=== PATIENT | female | born 1940 | race Caucasian/White ===

== ENCOUNTER 2021-07-25 18:30 | Emergency (ER) | payer MEDICARE, OTHER ==
[2021-07-25] MEDS ORDERED: ACETAMINOPHEN 325 MG TABLET (FP) PO ONE (19:02)
[2021-07-25 19:10] VITALS: TEMP 98.4; BMI 28.3
[2021-07-25] MEDS ORDERED: ACETAMINOPHEN 325 MG TABLET (FP) ONE (19:21)
[2021-07-25 20:48] VITALS: BP 136/54; PULSE 61
== END 2021-07-25 21:05 | disposition home or self-care (01) ==
LOC: FER 18:30
DX: S09.90XA Unspecified injury of head, initial encounter (principal); W05.0XXA Fall from non-moving wheelchair, initial encounter; Y93.F2 Activity, caregiving, lifting
CPT/HCPCS: 70450-TC; 71045-TC-FY; 72125-TC; 72170-TC-FY; 99285-25

== ENCOUNTER 2022-07-16 13:13 | Inpatient (IN) | payer OTHER ==
[2022-07-16 13:35] VITALS: BMI 34.0
[2022-07-16] MEDS ORDERED: SODIUM CHLORIDE 0.9% 500 ML INFUS.BAG IV ONE (13:39)
[2022-07-16 14:21] LABS: BASO % 0.3 % (0-2.0); EOS % 2.3 % (0-4.5); HEMOGLOBIN 12.6 GM/dL (10.7-15.3); LYMPH % 15.7 % (8-40); MCH 30.6 pg (25.7-33.7); MCHC 32.3 g/dl (32.0-36.0); MEAN CELL VOLUME 94.9 fl (80-96); MEAN PLT VOLUME 8.1 fl (7.5-11.1); MONO % 7.1 % (3.8-10.2); NEUT % 74.6 % (42.8-82.8); PLATELET COUNT 673 10^3/uL (134-434); RBC 4.11 M/mm3 (3.60-5.2); RDW 14.8 % (11.6-15.6); WHITE BLOOD COUNT 13.4 K/mm3 (4.0-10.0)
[2022-07-16 14:30] LABS: INR 1.07 (0.83-1.09); PROTHROMBIN TIME (PATIENT) 12.3 SEC (9.7-13.0); VENOUS BASE EXCESS 1.8 mmol/L (-2-2); VENOUS PCO2 53.8 mmHg (38-52); VENOUS PH 7.343 (7.310-7.410)
[2022-07-16 14:31] LABS: ACTIVATED PTT 28.7 SECONDS (25.2-36.5)
[2022-07-16 14:44] LABS: MAGNESIUM 2.5 mg/dL (1.8-2.4)
[2022-07-16 14:46] LABS: ALBUMIN 3.4 g/dl (3.4-5.0); BLOOD UREA NITROGEN 19.4 mg/dL (7-18)
[2022-07-16 14:48] LABS: CREATININE 0.7 mg/dL (0.55-1.3)
[2022-07-16 14:49] LABS: PHOSPHOROUS 4.1 mg/dL (2.5-4.9)
[2022-07-16 14:50] LABS: TOT PROT 7.8 g/dl (6.4-8.2)
[2022-07-16 14:51] LABS: BILIRUBIN,TOTAL 0.3 mg/dL (0.2-1)
[2022-07-16 14:55] LABS: LACTIC ACID 2.4 mmol/L (0.4-2.0)
[2022-07-16 15:01] LABS: EPI CELLS >36 /uL (0-25.1); HYALINE CASTS 17 /uL (0-3.1); PH,URINE 6.5 (5.0-8.0); URINE APPEARANCE TURBID; URINE BACTERIA >9,000 /uL (0-1359); URINE BILIRUBIN NEGATIVE (NEGATIVE); URINE COLOR DK YELLOW; URINE GLUCOSE (UA) NEGATIVE (NEGATIVE); URINE KETONE TRACE (NEGATIVE); URINE LEUK ESTERASE 3+ (NEGATIVE); URINE NITRITE POSITIVE (NEGATIVE); URINE PROTEIN 3+ (NEGATIVE); URINE RBC 2333 /uL (0-23.9); URINE WBC 11384 /uL (0-25.8)
[2022-07-16] MEDS ORDERED: CEFTRIAXONE 1,000 MG in DEXTROSE 5%-WATER - 50 ML IVPB ONE (15:41)
[2022-07-16] MEDS ORDERED: CEFTRIAXONE 1 GM/50 ML BAG ONE (16:15)
[2022-07-16] MEDS ORDERED: SODIUM CHLORIDE 1,000 ML IV STA (16:18)
[2022-07-16] MEDS ORDERED: SODIUM CHLORIDE 1,000 ML IV SCH (16:45)
[2022-07-16 18:12] LABS: MAGNESIUM 2.4 mg/dL (1.8-2.4)
[2022-07-16 18:17] LABS: LACTIC ACID 2.1 mmol/L (0.4-2.0)
[2022-07-16] MEDS ORDERED: PIPERACILLIN/TAZOB 3.375 GM 3.375 GM/50 ML BAG IVPB ONE (20:57)
[2022-07-16] MEDS: PIPERACILLIN/TAZOB 3.375 GM 3.375 GM in DEXTROSE 5%-WATER - 50 ML IVPB SCH (21:16)
[2022-07-16] MEDS ORDERED: DEXAMETHASONE SOD PHOSPHATE 10 MG/1 ML VIAL ONE (21:18)
[2022-07-16] MEDS: DEXAMETHASONE SOD PHOSPHATE 10 MG/1 ML VIAL IVPUSH SCH (22:05)
[2022-07-17] MEDS ORDERED: PIPERACILLIN/TAZOB 3.375 GM 3.375 GM/50 ML BAG IVPB ONE ×2 (02:40→10:22)
[2022-07-17] MEDS: PIPERACILLIN/TAZOB 3.375 GM 3.375 GM in DEXTROSE 5%-WATER - 50 ML IVPB SCH ×3 (02:49→21:00)
[2022-07-17 07:27] LABS: HEMATOCRIT 35.2 % (32.4-45.2); HEMOGLOBIN 11.9 GM/dL (10.7-15.3); MCH 31.6 pg (25.7-33.7); MCHC 33.8 g/dl (32.0-36.0); MEAN CELL VOLUME 93.4 fl (80-96); MEAN PLT VOLUME 7.4 fl (7.5-11.1); PLATELET COUNT 522 10^3/uL (134-434); RBC 3.77 M/mm3 (3.60-5.2); RDW 14.5 % (11.6-15.6); WHITE BLOOD COUNT 20.4 K/mm3 (4.0-10.0)
[2022-07-17 07:33] LABS: INR 1.12 (0.83-1.09); PROTHROMBIN TIME (PATIENT) 12.9 SEC (9.7-13.0)
[2022-07-17 07:35] LABS: ACTIVATED PTT 30.2 SECONDS (25.2-36.5)
[2022-07-17 07:51] LABS: BLOOD UREA NITROGEN 11.7 mg/dL (7-18); CALCIUM 8.4 mg/dL (8.5-10.1)
[2022-07-17 07:54] LABS: PHOSPHOROUS 3.7 mg/dL (2.5-4.9)
[2022-07-17 07:56] LABS: BILIRUBIN,TOTAL 0.4 mg/dL (0.2-1); TOT PROT 6.8 g/dl (6.4-8.2)
[2022-07-17 07:57] LABS: CREATININE 0.6 mg/dL (0.55-1.3)
[2022-07-17] MEDS ORDERED: DEXAMETHASONE SOD PHOSPHATE 10 MG/1 ML VIAL IVPUSH SCH (10:00)
[2022-07-17] MEDS ORDERED: DEXAMETHASONE SOD PHOSPHATE 10 MG/1 ML VIAL ONE (10:21)
[2022-07-17] MEDS ORDERED: ENOXAPARIN NA (PORCINE) 40 MG/0.4 ML DISP.SYRIN SQ ONE (10:21)
[2022-07-17] MEDS: DEXAMETHASONE SOD PHOSPHATE 10 MG/1 ML VIAL IVPUSH SCH (10:30)
[2022-07-17] MEDS: ENOXAPARIN NA (PORCINE) 40 MG/0.4 ML DISP.SYRIN SQ SCH (10:30)
[2022-07-17 10:46] LABS: ANISOCYTOSIS 1+; MACROCYTOSIS 0; OVALOCYTE 1+
[2022-07-18] MEDS: PIPERACILLIN/TAZOB 3.375 GM 3.375 GM in DEXTROSE 5%-WATER - 50 ML IVPB SCH ×4 (04:17→20:02)
[2022-07-18] MEDS: ENOXAPARIN NA (PORCINE) 40 MG/0.4 ML DISP.SYRIN SQ SCH (10:23)
[2022-07-18] MEDS: DEXAMETHASONE SOD PHOSPHATE 10 MG/1 ML VIAL IVPUSH SCH (10:23)
[2022-07-18] MEDS ORDERED: SODIUM CHLORIDE 0.9% 500 ML INFUS.BAG IV ONE (11:43)
[2022-07-18] MEDS ORDERED: SODIUM CHLORIDE 1,000 ML IV SCH (12:45)
[2022-07-18 12:47] LABS: BASO % 0.2 % (0-2.0); EOS % 0.2 % (0-4.5); HEMATOCRIT 34.3 % (32.4-45.2); HEMOGLOBIN 11.8 GM/dL (10.7-15.3); LYMPH % 13.8 % (8-40); MCH 31.9 pg (25.7-33.7); MCHC 34.3 g/dl (32.0-36.0); MEAN CELL VOLUME 92.9 fl (80-96); MEAN PLT VOLUME 7.6 fl (7.5-11.1); MONO % 5.7 % (3.8-10.2); NEUT % 80.1 % (42.8-82.8); PLATELET COUNT 541 10^3/uL (134-434); RDW 14.6 % (11.6-15.6); WHITE BLOOD COUNT 12.9 K/mm3 (4.0-10.0)
[2022-07-18] MEDS ORDERED: oxyCODONE HCL 5 MG TABLET ONE (13:25)
[2022-07-18] MEDS: SODIUM CHLORIDE 1,000 ML IV SCH (14:38)
[2022-07-19] MEDS: PIPERACILLIN/TAZOB 3.375 GM 3.375 GM in DEXTROSE 5%-WATER - 50 ML IVPB SCH ×3 (04:15→20:26)
[2022-07-19 08:14] LABS: BASO % 0.7 % (0-2.0); LYMPH % 18.3 % (8-40); MCH 32.1 pg (25.7-33.7); MCHC 34.3 g/dl (32.0-36.0); MEAN CELL VOLUME 93.5 fl (80-96); MEAN PLT VOLUME 7.5 fl (7.5-11.1); MONO % 8.3 % (3.8-10.2); NEUT % 72.7 % (42.8-82.8); PLATELET COUNT 561 10^3/uL (134-434); RBC 3.75 M/mm3 (3.60-5.2); RDW 14.5 % (11.6-15.6); WHITE BLOOD COUNT 12.2 K/mm3 (4.0-10.0)
[2022-07-19] MEDS: ENOXAPARIN NA (PORCINE) 40 MG/0.4 ML DISP.SYRIN SQ SCH (09:52)
[2022-07-19] MEDS: DEXAMETHASONE SOD PHOSPHATE 10 MG/1 ML VIAL IVPUSH SCH (09:52)
[2022-07-19] MEDS: VANCOMYCIN/WATER FOR INJ (PEG) 1,000 MG/200 ML BAG IVPB SCH ×2 (10:55→21:35)
[2022-07-19] MEDS: SODIUM CHLORIDE 1,000 ML IV SCH (12:57)
[2022-07-19 15:58] VITALS: RESP 18
[2022-07-19] MEDS ORDERED: PIPERACILLIN/TAZOBACTAM 3.375 GM VIAL IVPB ONE ×2 (19:44)
[2022-07-20] MEDS: PIPERACILLIN/TAZOB 3.375 GM 3.375 GM in DEXTROSE 5%-WATER - 50 ML IVPB SCH ×3 (04:28→20:30)
[2022-07-20] MEDS: DEXAMETHASONE SOD PHOSPHATE 10 MG/1 ML VIAL IVPUSH SCH (10:05)
[2022-07-20] MEDS: VANCOMYCIN/WATER FOR INJ (PEG) 1,000 MG/200 ML BAG IVPB SCH ×2 (10:05→23:10)
[2022-07-20] MEDS: ENOXAPARIN NA (PORCINE) 40 MG/0.4 ML DISP.SYRIN SQ SCH ×2 (10:06→21:50)
[2022-07-20 13:22] LABS: HEMATOCRIT 39.9 % (32.4-45.2); HEMOGLOBIN 13.1 GM/dL (10.7-15.3); MCH 30.8 pg (25.7-33.7); MCHC 32.8 g/dl (32.0-36.0); PLATELET COUNT 644 10^3/uL (134-434); RBC 4.25 M/mm3 (3.60-5.2); RDW 14.5 % (11.6-15.6); WHITE BLOOD COUNT 12.2 K/mm3 (4.0-10.0)
[2022-07-20] MEDS: SODIUM CHLORIDE 1,000 ML IV SCH (16:18)
[2022-07-20] MEDS: ATORVASTATIN CA 10 MG TABLET (FP) PO SCH (21:49)
[2022-07-20] MEDS ORDERED: DORZOLAMIDE 2% HCL OPHTHALMIC SOLUTION 10 ML BOTTLE OU SCH (22:00)
[2022-07-20] MEDS ORDERED: ARTIFICIAL TEARS (POLYVINYL ALCOHOL) OPTH DROPS OU SCH (22:00)
[2022-07-20] MEDS: BRIMONIDINE TARTRATE 0.1% OPHTHALMIC 5 ML BOTTLE OU SCH (23:09)
[2022-07-20] MEDS: ARTIFICIAL TEARS (POLYVINYL ALCOHOL) OPTH DROPS OU SCH (23:09)
[2022-07-20] MEDS: DORZOLAMIDE 2% HCL OPHTHALMIC SOLUTION 10 ML BOTTLE OU SCH (23:10)
[2022-07-21] MEDS: PIPERACILLIN/TAZOB 3.375 GM 3.375 GM in DEXTROSE 5%-WATER - 50 ML IVPB SCH ×3 (04:28→20:40)
[2022-07-21] MEDS: ARTIFICIAL TEARS (POLYVINYL ALCOHOL) OPTH DROPS OU SCH ×4 (06:52→21:15)
[2022-07-21] MEDS: LEVOTHYROXINE NA 75 MCG TABLET (FP) PO SCH (06:52)
[2022-07-21] MEDS: ENOXAPARIN NA (PORCINE) 40 MG/0.4 ML DISP.SYRIN SQ SCH ×3 (09:44→21:16)
[2022-07-21] MEDS: DEXAMETHASONE SOD PHOSPHATE 10 MG/1 ML VIAL IVPUSH SCH (09:45)
[2022-07-21] MEDS: VANCOMYCIN/WATER FOR INJ (PEG) 1,000 MG/200 ML BAG IVPB SCH ×3 (09:46→21:16)
[2022-07-21] MEDS: DORZOLAMIDE 2% HCL OPHTHALMIC SOLUTION 10 ML BOTTLE OU SCH ×3 (09:46→21:16)
[2022-07-21] MEDS: BRIMONIDINE TARTRATE 0.1% OPHTHALMIC 5 ML BOTTLE OU SCH ×3 (09:47→21:15)
[2022-07-21] MEDS: ESCITALOPRAM OXALATE 20 MG TABLET PO SCH (09:53)
[2022-07-21] MEDS ORDERED: amLODIPine BESYLATE 10 MG TABLET (FP) PO SCH (10:00)
[2022-07-21 15:01] LABS: HEMATOCRIT 38.9 % (32.4-45.2); HEMOGLOBIN 13.1 GM/dL (10.7-15.3); MCH 31.4 pg (25.7-33.7); MCHC 33.7 g/dl (32.0-36.0); MEAN CELL VOLUME 93.2 fl (80-96); MEAN PLT VOLUME 7.8 fl (7.5-11.1); PLATELET COUNT 619 10^3/uL (134-434); RBC 4.17 M/mm3 (3.60-5.2); RDW 14.4 % (11.6-15.6); WHITE BLOOD COUNT 11.6 K/mm3 (4.0-10.0)
[2022-07-21] MEDS: SODIUM CHLORIDE 1,000 ML IV SCH (15:09)
[2022-07-21] MEDS ORDERED: PIPERACILLIN/TAZOBACTAM 3.375 GM VIAL IVPB ONE (20:13)
[2022-07-21] MEDS: ATORVASTATIN CA 10 MG TABLET (FP) PO SCH ×2 (20:44→21:16)
[2022-07-22] MEDS: PIPERACILLIN/TAZOB 3.375 GM 3.375 GM in DEXTROSE 5%-WATER - 50 ML IVPB SCH ×3 (04:00→21:12)
[2022-07-22] MEDS: LEVOTHYROXINE NA 75 MCG TABLET (FP) PO SCH (06:21)
[2022-07-22] MEDS: ARTIFICIAL TEARS (POLYVINYL ALCOHOL) OPTH DROPS OU SCH ×3 (06:26→21:20)
[2022-07-22 07:46] LABS: BASO % 0.3 % (0-2.0); EOS % 0.3 % (0-4.5); HEMOGLOBIN 12.6 GM/dL (10.7-15.3); LYMPH % 24.2 % (8-40); MCH 30.8 pg (25.7-33.7); MCHC 33.1 g/dl (32.0-36.0); MEAN CELL VOLUME 92.8 fl (80-96); MEAN PLT VOLUME 8.1 fl (7.5-11.1); MONO % 7.3 % (3.8-10.2); NEUT % 67.9 % (42.8-82.8); PLATELET COUNT 605 10^3/uL (134-434); WHITE BLOOD COUNT 13.1 K/mm3 (4.0-10.0)
[2022-07-22 08:03] LABS: MAGNESIUM 2.3 mg/dL (1.8-2.4)
[2022-07-22 08:05] LABS: CREATININE 0.7 mg/dL (0.55-1.3); PHOSPHOROUS 2.7 mg/dL (2.5-4.9)
[2022-07-22] MEDS: ENOXAPARIN NA (PORCINE) 40 MG/0.4 ML DISP.SYRIN SQ SCH ×2 (10:11→21:12)
[2022-07-22] MEDS: VANCOMYCIN/WATER FOR INJ (PEG) 1,000 MG/200 ML BAG IVPB SCH ×2 (10:11→22:19)
[2022-07-22] MEDS: DEXAMETHASONE SOD PHOSPHATE 10 MG/1 ML VIAL IVPUSH SCH (10:12)
[2022-07-22] MEDS: ESCITALOPRAM OXALATE 20 MG TABLET PO SCH (10:12)
[2022-07-22] MEDS: BRIMONIDINE TARTRATE 0.1% OPHTHALMIC 5 ML BOTTLE OU SCH ×2 (10:27→21:20)
[2022-07-22] MEDS: DORZOLAMIDE 2% HCL OPHTHALMIC SOLUTION 10 ML BOTTLE OU SCH ×2 (10:28→21:20)
[2022-07-22] MEDS: SODIUM CHLORIDE 1,000 ML IV SCH (13:36)
[2022-07-22] MEDS: ATORVASTATIN CA 10 MG TABLET (FP) PO SCH (21:12)
[2022-07-23] MEDS: SODIUM CHLORIDE 1,000 ML IV SCH ×2 (03:59→04:34)
[2022-07-23] MEDS: PIPERACILLIN/TAZOB 3.375 GM 3.375 GM in DEXTROSE 5%-WATER - 50 ML IVPB SCH ×3 (04:35→20:32)
[2022-07-23] MEDS: LEVOTHYROXINE NA 75 MCG TABLET (FP) PO SCH (06:32)
[2022-07-23] MEDS: ARTIFICIAL TEARS (POLYVINYL ALCOHOL) OPTH DROPS OU SCH ×3 (06:33→23:03)
[2022-07-23 09:41] LABS: BASO % 0.2 % (0-2.0); EOS % 1.8 % (0-4.5); HEMATOCRIT 35.3 % (32.4-45.2); LYMPH % 31.1 % (8-40); MCH 31.8 pg (25.7-33.7); MEAN CELL VOLUME 93.4 fl (80-96); MEAN PLT VOLUME 7.7 fl (7.5-11.1); NEUT % 59.9 % (42.8-82.8); PLATELET COUNT 548 10^3/uL (134-434); RBC 3.78 M/mm3 (3.60-5.2); RDW 14.3 % (11.6-15.6); WHITE BLOOD COUNT 12.1 K/mm3 (4.0-10.0)
[2022-07-23] MEDS: VANCOMYCIN/WATER FOR INJ (PEG) 1,000 MG/200 ML BAG IVPB SCH ×2 (10:44→23:00)
[2022-07-23] MEDS: BRIMONIDINE TARTRATE 0.1% OPHTHALMIC 5 ML BOTTLE OU SCH ×2 (10:46→23:03)
[2022-07-23] MEDS: ENOXAPARIN NA (PORCINE) 40 MG/0.4 ML DISP.SYRIN SQ SCH ×2 (10:47→23:00)
[2022-07-23] MEDS: ESCITALOPRAM OXALATE 20 MG TABLET PO SCH (10:47)
[2022-07-23] MEDS: DORZOLAMIDE 2% HCL OPHTHALMIC SOLUTION 10 ML BOTTLE OU SCH ×2 (10:48→23:04)
[2022-07-23] MEDS ORDERED: ATORVASTATIN CA 10 MG TABLET (FP) PO SCH (22:00)
[2022-07-24] MEDS: PIPERACILLIN/TAZOB 3.375 GM 3.375 GM in DEXTROSE 5%-WATER - 50 ML IVPB SCH ×2 (04:01→12:26)
[2022-07-24] MEDS: LEVOTHYROXINE NA 75 MCG TABLET (FP) PO SCH (06:50)
[2022-07-24] MEDS: ARTIFICIAL TEARS (POLYVINYL ALCOHOL) OPTH DROPS OU SCH ×2 (06:51→13:25)
[2022-07-24] MEDS: SODIUM CHLORIDE 1,000 ML IV SCH ×2 (06:51)
[2022-07-24] MEDS ORDERED: MULTIVITAMINS (DAILY MVI) TABLET (FP) PO SCH (10:00)
[2022-07-24] MEDS: ENOXAPARIN NA (PORCINE) 40 MG/0.4 ML DISP.SYRIN SQ SCH (10:50)
[2022-07-24] MEDS: ESCITALOPRAM OXALATE 20 MG TABLET PO SCH (10:50)
[2022-07-24] MEDS: VANCOMYCIN/WATER FOR INJ (PEG) 1,000 MG/200 ML BAG IVPB SCH (10:51)
[2022-07-24] MEDS: BRIMONIDINE TARTRATE 0.1% OPHTHALMIC 5 ML BOTTLE OU SCH (10:51)
[2022-07-24] MEDS: DORZOLAMIDE 2% HCL OPHTHALMIC SOLUTION 10 ML BOTTLE OU SCH (10:51)
[2022-07-24 12:08] VITALS: BP 152/73; PULSE 42; TEMP 98.4
== END 2022-07-24 15:18 | disposition home or self-care (01) | DRG 871 ==
LOC: JER 13:13 → JERBED 15:41 → J4W 07-17 20:34 → J5S 07-22 21:41
PROVIDERS: ADMIT Internal Medicine; ATTEND Internal Medicine
DX: A41.89 Other specified sepsis (principal); G92.8 Other toxic encephalopathy; J69.0 Pneumonitis due to inhalation of food and vomit; U07.1 COVID-19; J96.00 Acute respiratory failure, unspecified whether with hypoxia or hypercapnia; N39.0 Urinary tract infection, site not specified; E87.2 Acidosis; I24.8 Other forms of acute ischemic heart disease; G31.83 Neurocognitive disorder with Lewy bodies; F02.80 Dementia in other diseases classified elsewhere, unspecified severity, without behavioral disturbance, psychotic disturbance, mood disturbance, and anxiety; E03.9 Hypothyroidism, unspecified; I10 Essential (primary) hypertension; R74.01 Elevation of levels of liver transaminase levels; D75.839 Thrombocytosis, unspecified; E78.5 Hyperlipidemia, unspecified; H35.30 Unspecified macular degeneration; R00.1 Bradycardia, unspecified
CPT/HCPCS: 0241U-QW; 36415; 70450-TC; 71045-TC-FY; 76705-TC; 80048; 80053; 81003; 82550; 82553; 82803; 82962; 83605; 83615; 83690; 83735; 84100; 84132; 84439; 84443; 84484; 85025; 85027; 85379; 85610; 85730; 87040; 87086; 87186; 93005; 93010; 93306-TC; 93970-TC; 97116-GP; 97162-GP; 99285-25; J1100

== ENCOUNTER 2024-04-22 13:42 | Emergency (ER) | payer OTHER ==
[2024-04-22 14:42] VITALS: RESP 18; TEMP 97.4
[2024-04-22 15:00] VITALS: BMI 28.3
[2024-04-22 15:58] VITALS: BP 111/41; PULSE 58
[2024-04-22 17:30] LABS: HEMATOCRIT 40.7 % (32.4-45.2); HEMOGLOBIN 13.2 G/dL (10.7-15.3); MCH 32.1 pg (25.7-33.7); MCHC 32.4 g/dl (32.0-36.0); MEAN PLT VOLUME 8.6 fl (7.5-11.1); PLATELET COUNT 565.2 10^3/uL (134-434); RBC 4.11 10^6/uL (3.60-5.2); RDW 14.6 % (11.6-15.6); WHITE BLOOD COUNT 21.6 10^3/uL (4.0-10.8)
[2024-04-22 17:32] LABS: ADD RBC MORPHOLOGY YES
[2024-04-22 17:42] LABS: ALK PHOS 73 U/L (45-117); ANION GAP 8 mmol/L (4-13); BILIRUBIN,TOTAL 0.4 mg/dl (0.2-1); CALCIUM 9.6 mg/dl (8.5-10.1); CHLORIDE 108 mmol/L (98-107); CO2 27 mmol/L (21-32); CREATININE 0.7 mg/dl (0.6-1.3); GLUCOSE,RANDOM 154 mg/dl (74-106); POTASSIUM 4.6 mmol/L (3.5-5.1); SGOT/AST 31 U/L (15-37); SGPT/ALT 32 U/L (7-52); SODIUM 143 mmol/L (136-145); TOT PROT 6.8 g/dl (6.4-8.2)
[2024-04-22 18:04] LABS: ANISOCYTOSIS 1+; PLATELET ESTIMATE INCREASED
== END 2024-04-22 19:12 | disposition home or self-care (01) ==
LOC: FER 13:42
DX: T17.220A Food in pharynx causing asphyxiation, initial encounter (principal)
CPT/HCPCS: 36415; 71045-TC-FY; 71250-TC; 80053; 85025; 99285-25

== ENCOUNTER 2025-03-02 16:01 | Observation (INO) | payer OTHER ==
[2025-03-02 17:25] LABS: ABSOLUTE IMMATURE GRANULOCYTES 0.05 x10^3/uL (0.0-0.031); BASOPHILS # 0.07 x10^3/uL (0.01-0.08); EOSINOPHILS # 0.25 x10^3/uL (0.04-0.36); HEMATOCRIT 36.9 % (34.1-44.9); HEMOGLOBIN 11.7 g/dL (11.2-15.7); MCHC 31.7 g/dl (32.2-35.5); MEAN CELL VOLUME 93.7 fl (79.4-94.8); MEAN PLT VOLUME 9.8 fl (9.4-12.3); MONOCYTE # 0.92 x10^3/uL (0.24-0.86); MONOCYTE % 7.3 % (4.7-12.5); PLATELET COUNT 539 x10^3/uL (182-369); RDW 15.4 % (12.5-17.0)
[2025-03-02 17:45] LABS: ALBUMIN 3.5 g/dl (3.4-5.0); BILIRUBIN,TOTAL 0.3 mg/dl (0.2-1); CALCIUM 8.5 mg/dl (8.5-10.1); CREATININE 0.8 mg/dl (0.6-1.3); MAGNESIUM 2.3 mg/dL (1.8-2.4); POTASSIUM 4.2 mmol/L (3.5-5.1); TOT PROT 6.3 g/dl (6.4-8.2)
[2025-03-02] MEDS: SODIUM CHLORIDE 1,000 ML IV STA (18:09)
[2025-03-02 18:39] LABS: VENOUS BASE EXCESS 0.1 mmol/L (-2-2); VENOUS O2 SATURATION 49.4 % (70-80); VENOUS PCO2 52.1 mmHg (38-52); VENOUS PH 7.331 (7.310-7.410)
[2025-03-02] MEDS ORDERED: cefTRIAXone SODIUM 1 GM VIAL ONE (19:45)
[2025-03-02] MEDS: CEFTRIAXONE 1,000 MG in DEXTROSE 5%-WATER - 50 ML IVPB ONE (19:50)
[2025-03-02] MEDS ORDERED: ACETAMINOPHEN 325 MG TABLET (FP) PO PRN (22:35)
[2025-03-03 00:32] VITALS: BMI 22.6
[2025-03-03 09:03] LABS: ABSOLUTE IMMATURE GRANULOCYTES 0.03 x10^3/uL (0.0-0.031); BASOPHILS # 0.09 x10^3/uL (0.01-0.08); EOSINOPHIL % 3.7 % (0.7-5.8); EOSINOPHILS # 0.41 x10^3/uL (0.04-0.36); HEMATOCRIT 33.7 % (34.1-44.9); HEMOGLOBIN 10.6 g/dL (11.2-15.7); MCHC 31.5 g/dl (32.2-35.5); MEAN CELL VOLUME 93.6 fl (79.4-94.8); MEAN PLT VOLUME 10.1 fl (9.4-12.3); MONOCYTE # 0.96 x10^3/uL (0.24-0.86); MONOCYTE % 8.7 % (4.7-12.5); PLATELET COUNT 495 x10^3/uL (182-369); RDW 15.5 % (12.5-17.0)
[2025-03-03 09:14] LABS: INR 1.05 (0.83-1.09); PROTHROMBIN TIME (PATIENT) 11.7 SEC (9.7-13.0)
[2025-03-03 09:17] LABS: ACTIVATED PTT 29.5 SECONDS (25.2-36.5)
[2025-03-03 09:36] LABS: CALCIUM 7.9 mg/dl (8.5-10.1); CREATININE 0.5 mg/dl (0.6-1.3); PHOSPHOROUS 3.2 (2.5-4.9); POTASSIUM 3.8 mmol/L (3.5-5.1)
[2025-03-03] MEDS: CEFTRIAXONE 1 GM in DEXTROSE 5%-WATER - 50 ML IVPB SCH (11:21)
[2025-03-03] MEDS: ASCORBIC ACID 500 MG TABLET (FP) PO SCH (11:22)
[2025-03-03] MEDS: LEVOTHYROXINE NA 75 MCG TABLET (FP) PO SCH (11:22)
[2025-03-03] MEDS: ESCITALOPRAM OXALATE 20 MG TABLET PO SCH (11:22)
[2025-03-03] MEDS: SODIUM CHLORIDE 0.9% 500 ML INFUS.BAG IV ONE (11:23)
[2025-03-03] MEDS: ATORVASTATIN CA 10 MG TABLET (FP) PO SCH (21:22)
[2025-03-05 01:50] VITALS: RESP 18
[2025-03-05 06:10] VITALS: PULSE 52
[2025-03-05] MEDS: BRIMONIDINE TARTRATE 0.15% OPHTHALMIC 5 ML BOTTLE OU SCH (09:24)
[2025-03-05] MEDS: DORZOLAMIDE 2% HCL OPHTHALMIC SOLUTION 10 ML BOTTLE OU SCH (09:25)
[2025-03-05 10:34] VITALS: BP 110/51; TEMP 97.8
[2025-03-05] MEDS ORDERED: LATANOPROST 0.005% OPHTH SOLN 2.5ML BOTTLE OU SCH (22:00)
== END 2025-03-05 13:32 | disposition home or self-care (01) ==
LOC: FER 16:01 → FM/S 21:45
PROVIDERS: ATTEND Internal Medicine
PROC: 3E03329 Introduction of Other Anti-infective into Peripheral Vein, Percutaneous Approach (ICD-10-PCS; principal; 2025-03-02)
PROC: 3E0337Z Introduction of Electrolytic and Water Balance Substance into Peripheral Vein, Percutaneous Approach (ICD-10-PCS; 2025-03-02)
DX: R41.82 Altered mental status, unspecified (principal); K52.9 Noninfective gastroenteritis and colitis, unspecified; N39.0 Urinary tract infection, site not specified; F02.80 Dementia in other diseases classified elsewhere, unspecified severity, without behavioral disturbance, psychotic disturbance, mood disturbance, and anxiety; R00.1 Bradycardia, unspecified; G31.83 Neurocognitive disorder with Lewy bodies; I10 Essential (primary) hypertension; E03.9 Hypothyroidism, unspecified; G93.41 Metabolic encephalopathy
CPT/HCPCS: 0241U-QW; 36415; 70450-TC; 71045-TC-FY; 74177-TC; 80048; 80053; 81003; 81015; 82803; 83735; 84100; 84439; 84443; 84484; 85025; 85610; 85730; 87045; 87046; 87086; 87186; 93005; 97116-GP; 97162-GP; 99285-25; G0378; Q9967